=== PATIENT | female | born 1990 | race Caucasian/White ===

== ENCOUNTER 2017-06-08 18:32 | Emergency (ER) | payer MEDICAID ==
[~2017-06-08] VITALS: Ht 172.7 cm; Wt 97.5 kg
[2017-06-08] MEDS ORDERED: LOSA100T15 PO (18:50)
[2017-06-08] MEDS ORDERED: AMLO5TAB2 PO (18:50)
[2017-06-08] MEDS ORDERED: CLONIDINE HCL 0.2 MG TABLET PO ONE (19:00)
[2017-06-08 19:15] VITALS: BP 152/94
[2017-06-08 19:17] LABS: BASOPHILS # (AUTO) 0.1 K/uL (0.0-8.0); BASOPHILS % (AUTO) 0.6 % (0.0-2.0); EOSINOPHILS # (AUTO) 0.1 K/uL (0.0-0.7); EOSINOPHILS % (AUTO) 1.4 % (0.0-7.0); HEMATOCRIT 39.8 % (31.2-41.9); HEMOGLOBIN 13.7 g/dL (10.9-14.3); LYMPHOCYTES # (AUTO) 2.6 K/uL (20.0-40.0); LYMPHOCYTES % (AUTO) 29.4 % (20.5-51.5); MEAN CORPUSCULAR HEMOGLOBIN 29.9 uug (24.7-32.8); MEAN CORPUSCULAR HGB CONC 34 g/dL (32.3-35.6); MEAN CORPUSCULAR VOLUME 86.9 fL (75.5-95.3); MONOCYTES # (AUTO) 0.7 K/uL (2.0-10.0); MONOCYTES % (AUTO) 8.1 % (0.0-11.0); NEUTROPHILS # (AUTO) 5.4 K/uL (1.8-8.9); NEUTROPHILS % (AUTO) 60.5 % (38.5-71.5); PLATELET COUNT (AUTO) 299 K/uL (179-408); RED BLOOD CELL COUNT(AUTO) 4.58 MIL/uL (3.63-4.92); WHITE BLOOD COUNT (AUTO) 8.9 K/uL (3.8-11.8)
[2017-06-08 19:24] LABS: POTASSIUM 3.9 mmol/L (3.5-5.1)
[2017-06-08] MEDS ORDERED: CLONIDINE HCL 0.2 MG TABLET ONE (19:30)
[2017-06-08 19:34] LABS: *URINE HCG, QUAL NEGATIVE (NEGATIVE)
--- NOTE | 2017-06-08 20:35 | NUR ---
Patient discharged to home in stable conditon. Written and verbal after care instructions given. Patient verbalizes understanding of instructions.
== END 2017-06-08 20:36 | disposition home or self-care (01) ==
LOC: ER 18:32
DX: I10 Essential (primary) hypertension (principal); R42 Dizziness and giddiness; R51 Headache; R20.0 Anesthesia of skin; R11.0 Nausea
CPT/HCPCS: 36415; 70030-TC; 70450; 71010; 84703; 85025; 85730; 93005; A4663